=== PATIENT | female | born 1935 | race American Indian/Alaskan Native ===

== ENCOUNTER 2022-06-18 13:50 | Emergency (ER) | payer OTHER ==
--- NOTE | 2022-06-18 15:38 | XRay Report ---
CHEST 1 VIEW 06/18/2022 3:15 PM INDICATION / CLINICAL INFORMATION: syncope. COMPARISON: None available. FINDINGS: SUPPORT DEVICES: None. HEART / MEDIASTINUM: Right greater than left hilar prominence. Borderline cardiomegaly for technique. LUNGS / PLEURA: No significant pulmonary or pleural abnormality. No pneumothorax. ADDITIONAL FINDINGS: No significant additional findings. IMPRESSION: 1. Right greater than left hilar prominence which may reflect vasculature, adenopathy additionally co nsidered. PA and lateral radiograph follow-up is recommended to further evaluate. Signer Name: Ev Jennings MD Signed: 06/18/2022 3:33 PM Workstation Name: [id number]
[2022-06-18 16:03] LABS: Basophils % (Auto) 0.6 % (0.0-1.8); Eosinophils % (Auto) 0.3 % (0.0-4.3); Hemoglobin 11.2 gm/dl (10.1-14.3); Lymphocytes # (Auto) 1.4 K/mm3 (1.2-5.4); Lymphocytes % (Auto) 16.5 % (13.4-35.0); Mean Corpuscular HGB Conc 33 % (30-34); Mean Corpuscular Volume 94 fl (79-97); Monocytes # (Auto) 0.5 K/mm3 (0.0-0.8); Monocytes % (Auto) 5.5 % (0.0-7.3); Platelet Count 148 K/mm3 (140-440); Red Blood Count 3.62 M/mm3 (3.65-5.03); Red Cell Distribution Width 13.8 % (13.2-15.2)
[2022-06-18 16:25] LABS: Alanine Aminotransferase 5 units/L (7-56); Albumin 3.8 g/dL (3.9-5); BUN/Creatinine Ratio 26; Blood Urea Nitrogen 39 mg/dL (7-17); Hemolysis Index 25
[2022-06-18 16:28] LABS: Creatine Kinase MB < 1.0 ng/mL (0.0-4.0)
--- NOTE | 2022-06-18 16:46 | Cat Scan Report ---
CT BRAIN: 06/18/2022 INDICATION / CLINICAL INFORMATION: syncope. COMPARISON: None available. FINDINGS: BRAIN/INTRACRANIAL STRUCTURES: Unenhanced CT images of the brain demonstrate no evidence of acute abn ormality. Ventricles and sulci are prominent in size, consistent with age-related atrophic change. Chronic white matter hypoattenuation is present at C2 hemispheric white matter, consistent with chron ic small vessel ischemic change. There is no evidence of acute large vessel territory ischemic injury, hemorrhage, or mass. There are no abnormal extra-axial fluid collections. Atherosclerotic vascular calcifications are present in the distal internal carotid arteries and verte bral arteries. EXTRACRANIAL STRUCTURES: Unremarkable. IMPRESSION: No acute abnormality. Chronic and age-related changes. All CT scans at this location are performed using dose reduction to ALARA by means of automated expos ure control. Signer Name: Shravan Paredes MD Signed: 06/18/2022 4:42 PM Workstation Name: [id number]
--- NOTE | 2022-06-18 17:42 | Emergency Department Report ---
ED General Adult HPI - General Chief complaint: Syncope Stated complaint: SYNCOPE Time Seen by Provider: 06/18/22 14:51 Source: patient, EMS Mode of arrival: Stretcher Limitations: No Limitations - History of Present Illness Initial comments: Patient presents to the emergency department via EMS with her daughter for episode of unresponsiveness. Per the patient's daughter she was getting her mom out of the shower when she sat on the toilet and her mother lost consciousness for less than 1 minute. She does state that the bathroom was steamy at the time of this occurrence. Patient states she feels completely fine and denies any chest pain or shortness of breath. Patient states that I just close my eyes for couple of seconds. -: Sudden Severity scale (0 -10): 0 Consistency: now resolved Improves with: none Worsens with: none Associated Symptoms: denies other symptoms Treatments Prior to Arrival: none - Related Data Allergies Allergy/AdvReac Type Severity Reaction Status Date / Time No Known Allergies Allergy Verified 06/18/22 14:00 ED Review of Systems ROS: Stated complaint: SYNCOPE Other details as noted in HPI Comment: All other systems reviewed and negative Constitutional: denies: chills, fever Eyes: denies: eye pain, eye discharge, vision change ENT: denies: ear pain, throat pain Respiratory: denies: cough, shortness of breath, wheezing Cardiovascular: denies: chest pain, palpitations Endocrine: no symptoms reported Gastrointestinal: denies: abdominal pain, nausea, diarrhea Genitourinary: denies: urgency, dysuria, discharge Musculoskeletal: denies: back pain, joint swelling, arthralgia Skin: denies: rash, lesions Neurological: denies: headache, weakness, paresthesias Psychiatric: denies: anxiety, depression Hematological/Lymphatic: denies: easy bleeding, easy bruising ED Past Medical Hx - Past Medical History Previous Medical History?: Yes Hx Hypertension: Yes Hx Diabetes: Yes Additional medical history: CARDIAC STENTS - Surgical History Past Surgical History?: Yes Hx Coronary Stent: Yes - Social History Smoking Status: Never Smoker Substance Use Type: None ED Physical Exam - General Limitations: No Limitations General appearance: alert, in no apparent distress - Head Head exam: Present: atraumatic, normocephalic - Eye Eye exam: Present: normal appearance, PERRL, EOMI - ENT ENT exam: Present: mucous membranes moist - Neck Neck exam: Present: normal inspection - Respiratory Respiratory exam: Present: normal lung sounds bilaterally. Absent: respiratory distress - Cardiovascular Cardiovascular Exam: Present: regular rate, normal rhythm. Absent: systolic murmur, diastolic murmur, rubs, gallop - GI/Abdominal GI/Abdominal exam: Present: soft, normal bowel sounds. Absent: distended, tenderness - Extremities Exam Extremities exam: Present: normal inspection - Back Exam Back exam: Present: normal inspection - Neurological Exam Neurological exam: Present: alert, oriented X3, CN II-XII intact. Absent: motor sensory deficit - Psychiatric Psychiatric exam: Present: normal affect, normal mood - Skin Skin exam: Present: warm, dry, intact, normal color. Absent: rash ED Course Vital Signs 06/18/22 06/18/22 13:57 15:03 Temperature 97.9 F 98.5 F Pulse Rate 50 L 51 L Respiratory 16 14 Rate Blood Pressure 118/72 125/62 [Left] O2 Sat by Pulse 98 100 Oximetry ED Medical Decision Making - Lab Data Result diagrams: 06/18/22 15:44 06/18/22 15:44 - EKG Data -: EKG Interpreted by [facility] EKG shows normal: sinus rhythm Rate: bradycardia - Medical Decision Making Admission was recommended but the family stated they would be comfortable with taking the patient home and bring her back if anything else occurs Critical care attestation.: If time is entered above; I have spent that time in minutes in the direct care of this critically ill patient, excluding procedure time. ED Disposition Clinical Impression: Vasovagal episode Disposition: 01 HOME / SELF CARE / HOMELESS Is pt being admited?: No Does the pt Need Aspirin: No Condition: Stable Instructions: Syncope (ED) Additional Instructions: Return if worse Referrals: JERMAN SINGLETON MD [Staff Physician] - 3-5 Days HATTIE GOODMAN MD [Staff Physician] - 3-5 Days Time of Disposition: 17:39
[2022-06-18 17:54] VITALS: BP 107/49
--- NOTE | 2022-06-19 09:31 | Electrocardiograph Report ---
[facility] Test Date: 2022-06-18 Test Time: 14:48:28 Pat Name: HEIDI ARMENDARIZ Department: Room: Gender: F Microfilm Clerk: ROXI : 1935 Requested By: KRISTIE CEDEÑO Order Number: [id number] Reading MD: Serjio Morris Measurements Intervals [place] Rate: 50 P: 41 HI: 188 QRS: -29 QRSD: 103 T: 38 QT: 481 QTc: 439 Interpretive Statements Sinus bradycardia nonspecific st-t No previous ECG available for comparison Electronically Signed On 06-19-2022 9:31:33 EDT by Serjio Morris
== END 2022-06-18 18:24 | disposition home or self-care (01) ==
LOC: ED 13:50
DX: R55 Syncope and collapse (principal); I10 Essential (primary) hypertension; E11.9 Type 2 diabetes mellitus without complications; Z98.890 Other specified postprocedural states; Z79.899 Other long term (current) drug therapy
CPT/HCPCS: 36415; 70450; 71045; 80053; 82550; 82553; 83880; 84484; 85025; 93005; 99284